=== PATIENT | male | born 1985 | race Caucasian/White ===

== ENCOUNTER 2022-09-15 11:22 | Outpatient (CLI) | payer MEDICARE, SELFPAY ==
--- NOTE | ~2022-09-15 | XR_ITS ---
Cervical Spine: AP, lateral, open-mouth views Clinical History: Pain Findings: The normal lordotic curve is maintained. The vertebral bodies and posterior elements appea r intact. The intervertebral disc spaces are well maintained. Pre-vertebral soft tissues are unremar kable. Impression: No significant abnormality is seen. Reviewed, dictated and finalized at [facility]. TER OPERATOR Impression: No significant abnormality is seen.
--- NOTE | ~2022-09-15 | XR_ITS ---
EXAMINATION: XR chest 2V 09/15/2022 12:05 INDICATION: Chest wall pain PROCEDURE: 2 view chest COMPARISON: No prior studies for comparison. FINDINGS: The lungs are clear. The cardiomediastinal silhouette is within normal limits. There are no pleural effusions. There is no pneumothorax suspected. IMPRESSION: 1: NO ACUTE CARDIOPULMONARY DISEASE. Reviewed, dictated and finalized at location [facility]
== END 2022-09-15 11:23 | disposition home or self-care (01) ==
PROVIDERS: Visit Provider Internal Medicine
DX: M54.2 Cervicalgia (principal); G44.52 New daily persistent headache (NDPH); R07.89 Other chest pain
CPT/HCPCS: 71046; 72050

== ENCOUNTER 2023-03-07 02:59 | Emergency (ER) | payer MEDICARE, SELFPAY ==
[2023-03-07 03:00] VITALS: BP 158/98; PULSE 126; RESP 13; TEMP 36.8; O2SAT 99
[2023-03-07 03:12] VITALS: PULSE 125
--- NOTE | 2023-03-07 03:16 | ED.GENADULT ---
HPI - General Adult General Chief complaint: Altered Mental Status Stated complaint: mental epsiode Time Seen by Provider: 03/07/23 03:03 History of Present Illness HPI narrative: Patient is a 37-year-old gentleman who presents the emergency department with chief complaint of mental episode. Patient reports that people have been following him and reports that they have been trying to dope him patient states that he feels extremely anxious and feels as though people are out to get him. The patient reports that he does not use fentanyl reports that he has not actively suicidal or homicidal at this time. Related Data Allergies Allergy/AdvReac Type Severity Reaction Status Date / Time Sulfa (Sulfonamide Allergy Unknown RASH Unverified 04/25/15 12:48 Antibiotics) Review of Systems Review of Systems: A 10 system review of systems was completed on the patient and is negative except for what is stated in the HPI. Nursing and ancillary documentation was reviewed. PMFSH Social History Social History Substance use type: does not use Exam Narrative: GENERAL: Well-appearing, well-nourished, and in no acute distress. HEAD: Normocephalic, atraumatic. EYES: PERRLA and EOMI. ENT: Nares clear, no rhinorrhea or epistaxis. Mucous membranes moist. NECK: Supple. CHEST: Clear to auscultation. No respiratory distress. HEART: Regular rate and rhythm. No murmur heard. Normal peripheral pulses. ABDOMEN: Soft, nontender, nondistended, normal active bowel sounds. EXTREMITIES: Normal range of motion. No edema. SKIN: Warm, dry, no rash. NEURO: No focal deficits. Alert and oriented x3. PSYCH: Anxious affect, tangential thoughts Course Vital Signs Vital signs: Vital Signs Temperature 36.8 C 03/07/23 03:00 Pulse Rate 126 H 03/07/23 03:00 Respiratory Rate 13 03/07/23 03:00 Blood Pressure 158/98 H 03/07/23 03:00 Pulse Oximetry 99 03/07/23 03:00 Oxygen Delivery Room Air 03/07/23 03:00 Temperature 36.8 C 03/07/23 03:00 Pulse Rate 115 H 03/07/23 04:23 Respiratory Rate 22 H 03/07/23 04:23 Blood Pressure 145/98 H 03/07/23 04:23 Pulse Oximetry 99 03/07/23 04:23 Oxygen Delivery Room Air 03/07/23 03:00 Medical Decision Making [facility] Narrative Medical decision making narrative: Differential diagnosis includes acute psychosis, substance-induced mood disorder, Laboratory studies were obtained on the patient which showed a positive drug screen for amphetamines. CBC was within normal limits EtOH was negative CMP was also within normal limits urinalysis showed no evidence of UTI salicylate and acetaminophen were negative flu and COVID were negative The patient's heart rate has come down the patient is much more calm but still speaking delusional thoughts the patient is currently medically cleared for psychiatric evaluation referral transfer and admission Patient was seen by mental health and was cleared for outpatient follow-up. Vital Signs Vital Signs: Vital Signs Temperature 36.8 C 03/07/23 03:00 Pulse Rate 126 H 03/07/23 03:00 Respiratory Rate 13 03/07/23 03:00 Blood Pressure 158/98 H 03/07/23 03:00 Pulse Oximetry 99 03/07/23 03:00 Oxygen Delivery Room Air 03/07/23 03:00 Temperature 36.8 C 03/07/23 03:00 Pulse Rate 115 H 03/07/23 04:23 Respiratory Rate 22 H 03/07/23 04:23 Blood Pressure 145/98 H 03/07/23 04:23 Pulse Oximetry 99 03/07/23 04:23 Oxygen Delivery Room Air 03/07/23 03:00 Lab Data 03/07/23 03:27 03/07/23 03:27 Labs: Lab Results 03/07/23 Range/Units 03:27 WBC 6.7 (4.5-10.0) K/mm3 RBC 4.96 (4.6-6.20) M/mm3 Hgb 15.7 (14.0-18.0) g/dL Hct 46.1 (42.0-52.0) % MCV 92.9 (80-100) fl MCH 31.7 (26-34) pg MCHC 34.1 (32-36) g/dl RDW 13.2 (11.5-14.5) % Plt Count 257 (150-375) k/mm3 MPV 9.8 (7.4-10.4) fl Im
[2023-03-07 03:33] LABS: Basophils Percent Auto 0.6 % (0.2-1.2); Eosinophils Percent Auto 0.4 % (0-4.4); Hematocrit 46.1 % (42.0-52.0); Hemoglobin 15.7 g/dL (14.0-18.0); Immature Granulocyte Absolute 0.01 K/mm3 (0.00-0.031); Immature Granulocyte Percent A 0.1 % (0-0.5); Lymphocytes Absolute Auto 1.93 K/mm3 (0.9-3.2); Lymphocytes Percent Auto 28.7 % (18.3-44.2); Mean Corpuscular HGB Conc 34.1 g/dl (32-36); Mean Corpuscular Hemoglobin 31.7 pg (26-34); Mean Corpuscular Volume 92.9 fl (80-100); Mean Platelet Volume 9.8 fl (7.4-10.4); Monocytes Absolute Auto 0.8 K/mm3 (0.1-0.6); Neutrophils Absolute Auto 3.9 K/mm3 (1.3-6.7); Neutrophils Percent Auto 58.2 % (45.5-73.1); Platelet Count Result 257 k/mm3 (150-375); Red Blood Count 4.96 M/mm3 (4.6-6.20); Red Cell Distribution Width 13.2 % (11.5-14.5); White Blood Count 6.7 K/mm3 (4.5-10.0)
--- NOTE | 2023-03-07 03:34 | PC.NURSE ---
Per EMS Dae has patient's car keys at police station and car is locked [place] patient was found.
[2023-03-07 03:53] LABS: Barbiturate Screen Urine Negative (Negative); Benzodiazepines Screen Urine Negative (Negative)
[2023-03-07 03:56] LABS: Alanine Aminotransferase 26 U/L (6-50); Alkaline Phosphatase 53 U/L (38-126); Anion Gap 10 mmol/L (8-16); Aspartate Amino Transferase 28 U/L (17-59); Bilirubin,Total 0.8 mg/dL (0.2-1.3); Blood Urea Nitrogen 32 mg/dL (9-20); Calcium 9.7 mg/dL (8.4-10.2); Carbon Dioxide 26 mmol/L (22-30); Chloride 98 mmol/L (98-107); Estimated CRCL calculation 104 ml/min; Estimated Glomerular Filt Rate > 60; Glucose 166 mg/dL (65-110); Potassium 3.6 mmol/L (3.4-5.0); Sodium 134 mmol/L (137-145)
[2023-03-07 03:57] LABS: Acetaminophen < 10 ug/mL (10-30); Ethanol < 10 mg/dL (<10); Salicylate < 1.0 mg/dL (2-20)
[2023-03-07 04:10] LABS: Influenza A QL RT-PCR Negative (Negative); Influenza B QL RT-PCR Negative (Negative); SARS-CoV-2 RNA PCR Negative (Negative)
[2023-03-07 04:22] LABS: Appearance Urine Cloudy (Clear); Color Urine Dark Yellow (Yellow); Glucose Urine UA Negative (Negative); Ketones Urine 1+ mg/dL (Negative); Protein Urine 1+ mg/dL (Negative); Specific Grav Ur 1.028 (1.001-1.035); pH Urine 5.5 (5.0-9.0)
[2023-03-07 04:23] VITALS: BP 145/98; PULSE 115; RESP 22; O2SAT 99
[2023-03-07 04:23] LABS: Bacteria Urine None Seen /hpf; Bilirubin Urine 1+ (Negative); Blood Urine Negative (Negative); Hyaline Casts Urine Present /lpf; Leukocyte Esterase Ur Negative LEU/UL (Negative); Nitrate Urine Negative (Negative); Non Pathogenic Casts >20; RBC Urine 0-2 /hpf (0-2); Squamous Epithelial Cell Urine None seen /hpf (Few); WBC Urine 0-5 /hpf
[2023-03-07 04:24] LABS: Add Urine Microscopic? YES
[2023-03-07 04:28] LABS: Cannabinoid Screen Urine Negative (Negative); Cocaine Screen Urine Negative (Negative); Methadone Screen Urine Negative (Negative); Opiate Screen Urine Negative (Negative); Phencyclidine Screen Urine Negative (Negative)
[2023-03-07 04:39] LABS: Valproic Acid 89.4 ug/mL (50-120)
[2023-03-07 04:44] LABS: Amphetamine Screen Urine Positive (Negative)
--- NOTE | 2023-03-07 05:14 | PC.NURSE ---
Patient wanted to know when he was okay to leave. ED nursing staff advised patient that he was able to leave whenever he would like.
--- NOTE | 2023-03-07 06:21 | PC.NURSE ---
Per Crisis patient will be sent home
[2023-03-07 07:07] VITALS: BP 134/98; PULSE 120; RESP 22; TEMP 36.8; O2SAT 96
== END 2023-03-07 07:08 | disposition home or self-care (01) ==
PROVIDERS: Emergency Provider Emergency Medicine; PCP Internal Medicine
DX: F23 Brief psychotic disorder (principal); F15.10 Other stimulant abuse, uncomplicated; Z20.822 Contact with and (suspected) exposure to COVID-19
CPT/HCPCS: 36415; 80053; 80164; 80307; 81001; 84443; 85025; 87636; 99284